=== PATIENT | male | born 1985 | race Caucasian/White ===

== ENCOUNTER 2018-01-29 12:38 | Emergency (ER) | payer SELFPAY ==
[~2018-01-29] VITALS: Ht 188 cm; Wt 116.6 kg
[~2018-01-29 12:38] MED LIST: CRS350T PO; CYCL10TA9 PO; HYDR-3720 PO; HYDR1TAB PO; IBUP-15 PO; LVF500T PO; MEPE50TA PO; METH4TAB PO; NAPR-243 PO; OXYC1TAB19 PO; SENN1TAB76 PO; TRM50T PO
[2018-01-29] MEDS ORDERED: ASPIRIN 81 MG CHEW (CHILDREN'S ASA) PO ONE (13:00)
--- OUTSIDE RECORDS SUMMARY | 2018-01-29 13:00 | XMS REPORT ---
Author Author SHEILA TOURE Organization [employer] Address Unknown Phone Unavailable Care Team Providers Care Rn Picu Name Role Phone SHEILA TOURE CP Unavailable Allergies, Adverse Reactions, Alerts Substance Reaction Event Type N.K.D.A. Info Not Available Non Drug Allergy Problems Problem Type Condition Code Onset Dates Condition Status Problem Unspecified chlamydial infection, in conditions classified elsewhere and of unspecified site 079.98 Active Assessment Dental examination Z01.20 Active Problem Lumbago 724.2 Active Assessment Dental caries, unspecified K02.9 Active Medications Medication Code System Code Instructions Start Date End Date Status Dosage Amoxicillin [facility] [address]-24 500 MG Orally Three times a day Oct 10, 2015 Oct 17, 2015 1 capsule Kennedy [facility] [address]-29 5-325 MG Orally every 6 hrs Oct 10, 2015 1 tablet as needed Procedures Procedure Coding System Code Date INTRAORL-PERIAPICAL 1 FILM 24594 CPT-4 D0220 Oct 10, 2015 EXTRAC ERUPTED TOOTH/EXPOSED ROOT CPT-4 D7140 Oct 10, 2015 LTD ORAL EVALUATION - PROBLEM FOCUS CPT-4 D0140 Oct 10, 2015 Vital Signs Date/Time: Oct 10, 2015 Blood Pressure Diastolic 81 mmHg Blood Pressure Systolic 132 mmHg Height 75 in Results No Known Results Summary Purpose [employer] Submission
--- OUTSIDE RECORDS SUMMARY | 2018-01-29 13:00 | XMS REPORT | Continuity of Care Document ---
Author Author [facility] Organization [facility] Address Unknown Phone Unavailable Allergies There is no data. Medications There is no data. Problems Date Dx Coded Attending Type Code Diagnosis Diagnosed By 05/26/2012 SURESH ROSS APRN 724.2 BACK PAIN, LOWER 11/02/2013 SURESH ROSS APRN 079.98 CHLAMYDIA Procedures Code [place] [address] GC/CHLAM URINE (STATE) 11/02/2013 Results There is no data. Encounters ACCT No. Visit Date/Time Discharge Status Pt. Type Provider Facility Loc./Unit Complaint [id number] 08/21/2013 01:55:00 08/21/2013 03:22:00 DIS Emergency [id number] 11/02/2013 16:26:00 11/02/2013 23:59:59 CLS Outpatient SURESH ROSS APRN
--- OUTSIDE RECORDS SUMMARY | 2018-01-29 13:00 | XMS REPORT ---
Author Author JONATHAN PACHECO [facility] Address Unknown Care Team Providers Care Blow Molder Name Role Phone JONATHAN PACEHCO Unavailable PROBLEMS Type Condition ICD9-CM Code LIU45-QD Code Onset Dates Condition Status SNOMED Code Problem Encounter to establish care with new doctor Z71.89 Active 756716134 Problem Pure hypercholesterolemia E78.0 Active 298957421 Problem Nausea R11.0 Active 455790435 Problem Spinal stenosis of lumbar region M48.06 Active 65660200 Problem Chronic intractable headache, unspecified headache type R51 Active 99875398 Problem Degenerative disc disease, lumbar M51.36 Active 40482665 Problem Migraine without status migrainosus, not intractable, unspecified migraine type G43.909 Active 33060033 ALLERGIES No Known Allergies SOCIAL HISTORY Never Assessed PLAN OF CARE Activity Details Follow Up prn Reason:aleksander/hygiene VITAL SIGNS Height 75 in 2016-12-27 Blood pressure systolic 132 mmHg 2016-12-27 Blood pressure diastolic 79 mmHg 2016-12-27 MEDICATIONS No Known Medications RESULTS No Results PROCEDURES Procedure Date Ordered Result Body Site EXTRAC ERUPTED TOOTH/EXPOSED ROOT Dec 27, 2016 IMMUNIZATIONS No Known Immunizations MEDICAL (GENERAL) HISTORY Type Description Date Medical History Pins and metal plate in Ankle 2002 Medical History spinal stenosis Medical History degenerative disc disease Medical History migraines Surgical History right ankle surgery 2002 Hospitalization History multiple r/t back issues
--- OUTSIDE RECORDS SUMMARY | 2018-01-29 13:00 | XMS REPORT ---
Author Author JONATHAN PACHECO [facility] Address Unknown Care Team Providers Care Slip Bridge Operator Name Role Phone JONATHAN PACHECO Unavailable PROBLEMS Type Condition ICD9-CM Code SRB42-GP Code Onset Dates Condition Status SNOMED Code Problem Encounter to establish care with new doctor Z71.89 Active 436680662 Problem Pure hypercholesterolemia E78.0 Active 689687687 Problem Nausea R11.0 Active 468377074 Problem Spinal stenosis of lumbar region M48.06 Active 58061123 Problem Chronic intractable headache, unspecified headache type R51 Active 49330203 Problem Degenerative disc disease, lumbar M51.36 Active 83194076 Problem Migraine without status migrainosus, not intractable, unspecified migraine type G43.909 Active 60341661 ALLERGIES Substance Reaction Event Type Date Status N.K.D.A. Unknown Non Drug Allergy Nov, Unknown SOCIAL HISTORY No smoking Hx information available PLAN OF CARE Activity Details Follow Up 1 Week Reason:TE #14 VITAL SIGNS Height 75 in 2016-12-13 Blood pressure systolic 125 mmHg 2016-12-13 Blood pressure diastolic 78 mmHg 2016-12-13 MEDICATIONS Medication Instructions Dosage Frequency Start Date End Date Duration Status [place] 5-325 MG Orally every 6 hrs 1 tablet as needed 6h 4 days Active Amoxicillin 500 MG Orally every 8 hrs 1 tablet 8h 7 days Active RESULTS No Results PROCEDURES Procedure Date Ordered Related Diagnosis Body Site LTD ORAL EVALUATION - PROBLEM FOCUS Dec 13, 2016 INTRAORL-PERIAPICAL 1 FILM 36067 Dec 13, 2016 IMMUNIZATIONS No Known Immunizations
[2018-01-29 13:07] LABS: BASOPHILS # (AUTO) 0.1 10^3/uL (0.0-0.1); BASOPHILS % (AUTO) 1 % (0-10); EOSINOPHILS # (AUTO) 0.1 10^3/uL (0.0-0.3); EOSINOPHILS % (AUTO) 2 % (0-10); HEMATOCRIT 44 % (40-54); HEMOGLOBIN 15.4 G/DL (13.3-17.7); LYMPHOCYTES # (AUTO) 2.1 X 10^3 (1.0-4.0); LYMPHOCYTES % (AUTO) 28 % (12-44); MEAN CORPUSCULAR HEMOGLOBIN 31 PG (25-34); MEAN CORPUSCULAR HGB CONC 35 G/DL (32-36); MEAN CORPUSCULAR VOLUME 88 FL (80-99); MEAN PLATELET VOLUME 10.2 FL (7.4-10.4); MONOCYTES # (AUTO) 0.8 X 10^3 (0.0-1.0); MONOCYTES % (AUTO) 10 % (0-12); NEUTROPHILS # (AUTO) 4.5 X 10^3 (1.8-7.8); NEUTROPHILS % (AUTO) 59 % (42-75); PLATELET COUNT 233 10^3/uL (130-400); RED BLOOD COUNT 5.02 10^6/uL (4.35-5.85); RED CELL DISTRIBUTION WIDTH 11.9 % (10.0-14.5); WHITE BLOOD COUNT 7.6 10^3/uL (4.3-11.0)
[2018-01-29 13:21] LABS: PROTHROMBIN TIME PATIENT 13.2 SEC (12.2-14.7)
[2018-01-29 13:27] LABS: ALANINE AMINOTRANSFERASE 70 U/L (0-55); ALKALINE PHOSPHATASE 60 U/L (40-136); BILIRUBIN,TOTAL 0.6 MG/DL (0.1-1.0); BUN/CREATININE RATIO 18; CARBON DIOXIDE 25 MMOL/L (21-32); CHLORIDE 104 MMOL/L (98-107); CREATININE SERUM 0.88 MG/DL (0.60-1.30); GFR ESTIMATED > 60; GLUCOSE 112 MG/DL (70-105); MAGNESIUM 2.3 MG/DL (1.8-2.4); POTASSIUM 3.5 MMOL/L (3.6-5.0); SODIUM 139 MMOL/L (135-145); TOTAL PROTEIN 8.4 GM/DL (6.4-8.2)
[2018-01-29 13:37] LABS: MYOGLOBIN SERUM 37.2 NG/ML (10.0-92.0)
--- NOTE | 2018-01-29 13:55 | Diagnostic Imaging Report ---
EXAMINATION: Portable erect AP chest at 1:09 PM. INDICATION: Epigastric chest pain. COMPARISON: There are no prior studies available for comparison. FINDINGS: The heart size is within normal limits. The lungs are clear. There is no evidence for pneumonia or for a pleural effusion. There is no sign of a pneumothorax. The mediastinum is not widened. The osseous structures are intact. IMPRESSION: There is no evidence for an acute cardiopulmonary abnormality. Dictated by: Dictated on workstation # [id number]
[2018-01-29] MEDS ORDERED: ANTACID SUSP 30 ML UDC (MYLANTA) PO ONE (14:00)
[2018-01-29] MEDS ORDERED: LIDOCAINE 2% VISCOUS 15 ML UDC PO ONE (14:00)
[2018-01-29] MEDS ORDERED: SUCR1TAB36 PO (14:04)
[2018-01-29] MEDS ORDERED: PANT40SU PO (14:04)
--- NOTE | 2018-01-29 14:04 | ED Cardiac General ---
History of Present Illness General Chief Complaint: Chest Pain Stated Complaint: CHEST DISCOMFORT,SOB,SORE THROAT Nursing Triage Note: AMBULATORY TO ER WITH REPORTS OF EPIGASTRIC CHEST PAIN S/P FOOD OR DRINK CONSUMPTION. DENIES ANY SHORTNESS OF BREATH OR ANY OTHER CONCERNS. PATIENT WAS REPORTEDLY SEEN AT [facility] FOR SAME ISSUE EARLIER THIS WEEK WITHOUT ANSWERS. Source: patient Exam Limitations: no limitations History of Present Illness Date Seen by Provider: Jan 29, 2018 Time Seen by Provider: 14:01 Initial Comments To ER with left-sided epigastric pain as well as some pain in his chest and shortness of breath. Pain isn't present for one week. Pain is worsened by eating. He denies cough, pain is not worsened by deep breathing. He does drink alcohol 3-4 times a week. Severity: moderate NTG SL SUPERVISOR BEAM DEPARTMENT: No ASA po SUPERVISOR BEAM DEPARTMENT: No Allergies and Home Medications Allergies Coded Allergies: No Known Drug Allergies (Unverified , 01/17/10) Home Medications Cyclobenzaprine Hcl 10 Mg Tablet, 1 EACH PO Q8HR PRN FOR MUSCLE SPASMS Prescribed by: LUCIO CARDOSO on 08/21/13 024 Methylprednisolone 4 Mg/Dose-Pack Tab.ds.pk, 0 PO UD Prescribed by: LUCIO CARDOSO on 08/21/13 024 Pantoprazole Sodium 40 Mg Granpkt.dr, 40 MG PO DAILY Prescribed by: EDWARD PHILLIPS on 01/29/181403 Sucralfate 1 Gm Tablet, 1 GM PO ACHS Prescribed by: EDWARD PHILLIPS on 01/29/18 140 Patient Home Medication List Home Medication List Reviewed: Yes Review of Systems Constitutional: see HPI EENTM: No Symptoms Reported Respiratory: No Symptoms Reported Cardiovascular: No Symptoms Reported Gastrointestinal: See HPI, Abdominal Pain Genitourinary: No Symptoms Reported Musculoskeletal: no symptoms reported Skin: no symptoms reported Psychiatric/Neurological: No Symptoms Reported Past Sglgpxy-Shvpdw-Jigffj Hx Patient Social History Alcohol Use: Regular Use Alcohol Beverage of Choice: Beer Recreational Drug Use: Yes (OCC POT ON WEEKENDS) Smoking Status: Current Everyday Smoker Type Used: Cigarettes 2nd Hand Smoke Exposure: Yes Recent Foreign Travel: No Contact w/Someone Who Travel: No Recent Infectious Disease Expo: No Recent Hopitalizations: No Physical Abuse: No Sexual Abuse: No Mistreated: No Fear: No Immunizations Up To Date Tetanus Booster (TDap): More than 5yrs PED Vaccines UTD: Yes Seasonal Allergies Seasonal Allergies: Yes Surgeries History of Surgeries: Yes Surgeries: Orthopedic Respiratory History of Respiratory Disorde: No Cardiovascular History of Cardiac Disorders: Yes Cardiac Disorders: High Cholesterol, Hypertension Neurological History of Neurological Disord: No Gastrointestinal History of Gastrointestinal Di: No Musculoskeletal History of Musculoskeletal Dis: Yes Musculoskeletal Disorders: Degenerate Disk Disease, Chronic Back Pain Endocrine History of Endocrine Disorders: No Cancer History of Cancer: No Psychosocial History of Psychiatric Problem: No Suicide Risk Score: 0 Integumentary History of Skin or Integumenta: No Blood Transfusions History of Blood Disorders: No Adverse Reaction to a Blood Tr: No Physical Exam Vital Signs Vital Signs - First Documented Capillary Refill : Less Than 3 Seconds General Appearance: No Apparent Distress, WD/WN HEENT: PERRL/EOMI, TMs Normal Neck: Full Range of Motion, Normal Inspection Respiratory: No Accessory Muscle Use, No Respiratory Distress Gastrointestinal: Normal Bowel Sounds, Soft, Other (there is some epigastric tenderness to palpation) Extremity: Normal Capillary Refill, Normal Inspection Neurologic/Psychiatric: Alert, Oriented x3 Skin: Normal Color, Warm/Dry Progress/Results/Core Measures Results/Orders Lab Results Laboratory Tests Test 01/29/18 12:50 01/29/18 13:54 Range/Units White Blood Count 7.6 4.3-11.0 10^3/uL Red Blood Count 5.02 4.35-5.85 10^6/uL Hemoglobin 15.4 13.3-17.7 G/DL Hematocrit 44 40-54 % Mean Corpuscular Volume 88 80-99 FL Mean Corpuscular Hemoglobin 31 25-34 PG Mean Corpuscular Hemoglobin Concent 35 32-36 G/DL Red Cell Distribution Width 11.9 10.0-14.5 % Platelet Count 233 130-400 10^3/uL Mean Platelet Volume 10.2 7.4-10.4 FL Neutrophils (%) (Auto) 59 42-75 % Lymphocytes (%) (Auto) 28 12-44 % Monocytes (%) (Auto) 10 0-12 % Eosinophils (%) (Auto) 2 0-10 % Basophils (%) (Auto) 1 0-10 % Neutrophils # (Auto) 4.5 1.8-7.8 X 10^3 Lymphocytes # (Auto) 2.1 1.0-4.0 X 10^3 Monocytes # (Auto) 0.8 0.0-1.0 X 10^3 Eosinophils # (Auto) 0.1 0.0-0.3 10^3/uL Basophils # (Auto) 0.1 0.0-0.1 10^3/uL Prothrombin Time 13.2 12.2-14.7 SEC INR Comment 1.0 0.8-1.4 Activated Partial Thromboplast Time 31 24-35 SEC D-Dimer 0.38 0.00-0.49 UG/ML Sodium Level 139 135-145 MMOL/L Potassium Level 3.5 L 3.6-5.0 MMOL/L Chloride Level 104 98-107 MMOL/L Carbon Dioxide Level 25 21-32 MMOL/L Anion Gap 10 5-14 MMOL/L Blood Urea Nitrogen 16 7-18 MG/DL Creatinine 0.88 0.60-1.30 MG/DL Estimat Glomerular Filtration Rate > 60 BUN/Creatinine Ratio 18 Glucose Level 112 H 70-105 MG/DL Calcium Level 10.0 8.5-10.1 MG/DL Magnesium Level 2.3 1.8-2.4 MG/DL Total Bilirubin 0.6 0.1-1.0 MG/DL Aspartate Amino Transf (AST/SGOT) 33 5-34 U/L Alanine Aminotransferase (ALT/SGPT) 70 H 0-55 U/L Alkaline Phosphatase 60 40-136 U/L Myoglobin 37.2 10.0-92.0 NG/ML Troponin I < 0.30 <0.30 NG/ML B-Type Natriuretic Peptide < 10.0 <100.0 PG/ML Total Protein 8.4 H 6.4-8.2 GM/DL Albumin 5.0 H 3.2-4.5 GM/DL Lipase 16 8-78 U/L Urine Opiates Screen NEGATIVE NEGATIVE Urine Oxycodone Screen NEGATIVE NEGATIVE Urine Methadone Screen NEGATIVE NEGATIVE Urine Propoxyphene Screen NEGATIVE NEGATIVE Urine Barbiturates Screen NEGATIVE NEGATIVE Ur Tricyclic Antidepressants Screen NEGATIVE NEGATIVE Urine Phencyclidine Screen NEGATIVE NEGATIVE Urine Amphetamines Screen NEGATIVE NEGATIVE Urine Methamphetamines Screen NEGATIVE NEGATIVE Urine Benzodiazepines Screen NEGATIVE NEGATIVE Urine Cocaine Screen NEGATIVE NEGATIVE Urine Cannabinoids Screen NEGATIVE NEGATIVE My Orders Orders - EDWARD PHILLIPS VICE PRESIDENT [employer]ATIONS Cbc With Automated Diff (01/29/18 12:49) Magnesium (01/29/18 12:49) Chest 1 View, Ap/Pa Only (01/29/18 12:49) Ekg Tracing (01/29/18 12:49) Cardiac Profile 1 (01/29/18 12:49) Comprehensive Metabolic Panel (01/29/18 12:49) Myoglobin Serum (01/29/18 12:49) Protime With Inr (01/29/18 12:49) Partial Thromboplastin Time (01/29/18 12:49) O2 (01/29/18 12:49) Monitor-Rhythm Ecg Trace Only (01/29/18 12:49) Aspirin Chewable Tablet (Baby Aspirin Ch (01/29/18 13:00) Saline Lock/Iv-Start (01/29/18 12:49) BNP (01/29/18 12:49) Fibrin Degradation Products (01/29/18 12:49) Drug Screen Stat (Urine) (01/29/18 12:53) Antacid Suspension (Mylanta Suspension (01/29/18 14:00) Lidocaine 2% Viscous 15 Ml (Xylocaine Vi (01/29/18 14:00) Lipase (01/29/18 14:00) Medications Given in ED Vital Signs/I&O Vital Sign - Last 12Hours 01/29/18 01/29/18 01/29/18 01/29/18 12:48 12:48 12:54 13:06 Temp 98.0 98.0 Pulse 107 Resp 18 B/P (MAP) 151/93 (112) Pulse Ox 97 97 O2 Delivery Room Air Room Air Room Air 01/29/18 15:14 Temp 98.0 Pulse 87 Resp 18 B/P (MAP) 139/86 (112) Pulse Ox 97 O2 Delivery Room Air Blood Pressure Mean: 112 Departure Impression Impression: Primary Impression: Gastritis Disposition: 01 HOME, SELF-CARE Condition: Stable Departure-Patient Inst. Decision time for Depature: 14:03 Referrals: NO,LOCAL PHYSICIAN (PCP/Family) Primary Care Physician Patient Instructions: Gastritis Add. Discharge Instructions: 1. Return to ER for any concerns 2. Medication as directed 3. All discharge instructions reviewed with patient and/or family. Voiced understanding. Scripts Pantoprazole Sodium (Protonix) [address] 40 MG PO DAILY, #30 TAB Prov: EDWARD PHILLPIS APRN 01/29/18 Sucralfate (Carafate) 1 Gm Tablet 1 GM PO ACHS, #40 TAB Prov: EDWARD PHILLIPS APRN 01/29/18 EDWARD PHILLIPS APRN Jan 29, 2018 14:04
[2018-01-29 14:13] LABS: AMPHETAMINE SCREEN, URINE NEGATIVE (NEGATIVE); BARBITURATE SCREEN URINE NEGATIVE (NEGATIVE); BENZODIAZEPINES SCREEN URINE NEGATIVE (NEGATIVE); CANNABINOID SCREEN, URINE NEGATIVE (NEGATIVE); COCAINE SCREEN URINE NEGATIVE (NEGATIVE); METHADONE STAT NEGATIVE (NEGATIVE); METHAMPHETAMINE SCREEN URINE S NEGATIVE (NEGATIVE); OPIATE SCREEN URINE NEGATIVE (NEGATIVE); OXYCODONE STAT NEGATIVE (NEGATIVE); PROPOXYPHENE STAT NEGATIVE (NEGATIVE); TRICYCLIC ANTIDEPRESSANTS SCRE NEGATIVE (NEGATIVE)
[2018-01-29 15:14] VITALS: BP 139/86
== END 2018-01-29 15:14 | disposition home or self-care (01) ==
LOC: EDUNIT# 12:38 → ER 12:42
DX: K29.70 Gastritis, unspecified, without bleeding (principal); E78.00 Pure hypercholesterolemia, unspecified; I10 Essential (primary) hypertension; F17.210 Nicotine dependence, cigarettes, uncomplicated
CPT/HCPCS: 36415; 71045; 80053; 80306; 83690; 83735; 83874; 83880; 84484; 85025; 85379; 85610; 85730; 93005; 93041

== ENCOUNTER 2018-04-27 23:00 | Emergency (ER) | payer SELFPAY ==
[~2018-04-27] VITALS: Ht 190.5 cm; Wt 99.8 kg
[~2018-04-27 23:00] MED LIST changes: +PANT40SU PO; +SUCR1TAB36 PO
--- NOTE | 2018-04-27 23:38 | ED Upper Extremity ---
General Chief Complaint: Laceration Stated Complaint: R ARM LACERATION Nursing Triage Note: ETOH on board, cut rt forarm with glass Nursing Sepsis Screen: No Definite Risk Source: patient, family (father) Exam Limitations: no limitations History of Present Illness Date Seen by Provider: Apr 27, 2018 Time Seen by Provider: 23:29 Initial Comments The patient presents to ER by private conveyance because he was drinking some alcohol tonight and closed the door on the trailer he is staying in and the glass came down and cut his right forearm on the anterior/palmar side. He is not having any pain. He does not own last tetanus shot. He was not trying to hurt himself and has no suicidal ideation. He does not have any significant medical history. Allergies and Home Medications Allergies Coded Allergies: No Known Drug Allergies (Unverified , 01/17/10) Home Medications Cyclobenzaprine Hcl 10 Mg Tablet, 1 EACH PO Q8HR PRN FOR MUSCLE SPASMS Prescribed by: LUCIO CARDOSO on 08/21/13239 Methylprednisolone 4 Mg/Dose-Pack Tab.ds.pk, 0 PO UD Prescribed by: LUCIO CARDOSO on 08/21/13239 Pantoprazole Sodium 40 Mg Granpkt.dr, 40 MG PO DAILY Prescribed by: EDWARD PHILLIPS on 01/29/181403 Sucralfate 1 Gm Tablet, 1 GM PO ACHS Prescribed by: EDWARD PHILLIPS on 01/29/181403 Patient Home Medication List Home Medication List Reviewed: Yes Constitutional: No chills, No diaphoresis EENTM: No ear discharge, No ear pain Respiratory: No cough, No short of breath Cardiovascular: No edema, No palpitations Gastrointestinal: No abdominal pain, No constipation, No nausea Genitourinary: No discharge, No dysuria Musculoskeletal: No back pain, No joint pain Past Uhwbkgr-Lhqohb-Qpucqh Hx Patient Social History Alcohol Use: Regular Use Alcohol Beverage of Choice: Beer Recreational Drug Use: No Smoking Status: Current Everyday Smoker Type Used: Cigarettes 2nd Hand Smoke Exposure: Yes Recent Foreign Travel: No Contact w/Someone Who Travel: No Recent Infectious Disease Expo: No Recent Hopitalizations: No Immunizations Up To Date Tetanus Booster (TDap): More than 5yrs PED Vaccines UTD: Yes Seasonal Allergies Seasonal Allergies: Yes Past Medical History Surgeries: Yes Orthopedic Respiratory: No Cardiac: Yes High Cholesterol, Hypertension Neurological: No Gastrointestinal: No Musculoskeletal: Yes Degenerate Disk Disease, Chronic Back Pain Endocrine: No Cancer: No Psychosocial: No Integumentary: No Blood Disorders: No Adverse Reaction/Blood Tranf: No Physical Exam Vital Signs Vital Signs - First Documented 04/27/18 23:23 Temp 98.0 Pulse 77 Resp 20 B/P (MAP) 122/77 (92) Pulse Ox 93 Capillary Refill : Less Than 3 Seconds General Appearance: WD/WN, no apparent distress HEENT: PERRL/EOMI, pharynx normal Neck: non-tender, normal inspection Cardiovascular: normal peripheral pulses, regular rate, rhythm, no edema Respiratory: chest non-tender, lungs clear, normal breath sounds Elbow/Forearm: non-tender, normal ROM, Right, soft tissue tenderness (3-4 cm linear laceration that is into the subcutaneous fat on the anterior right forearm with no palpable foreign body.) Wrist: Yes normal inspection, Yes non-tender, Yes no evidence of injury, Yes normal ROM Hand: normal inspection, non-tender, no evidence of injury, normal ROM, Right Neurologic/Tendon: normal sensation, normal motor functions, normal tendon functions, responds to pain, no evidence tendon injury Neurologic/Psychiatric: no motor/sensory deficits, alert, normal mood/affect, oriented x 3 Skin: normal color, warm/dry Procedures/Interventions Wound Location: Upper Extremities Other Wound Location Right anterior forearm Wound Length (cm): 4 Wound's Depth, Shape: superficial Wound Explored: clean Irrigated w/ Saline (ccs): 100 Betadine Prep?: Yes (and chlorhexidine soap water) Anesthesia: Lidocaine w/ Epi Volume Anesthetic (ccs): 4 Wound Debrided: minimal Suture: Ethlion Suture Size: 2-0 Number of Sutures: 5 Layer Closure?: 1 Progress Wound was cleaned thoroughly with chlorhexidine soap water and then soaked in iodine. X-rays obtained showing no obvious foreign bodies. The wound was explored and found to be very superficial at the level of just below the dermis. Wound was then infiltrated allow around the edges with 1% lidocaine with epinephrine. When the patient was determined to be numb the wound was then approximated and closed using 5 simple interrupted sutures 2-0 Ethilon. The patient tolerated the procedure well. Progress/Results/Core Measures Results/Orders My Orders Orders - FUENTES WEBSTER Forearm, Right, 2 Views (04/27/18 23:25) Dipht,Pertuss(Acell),Tet Adult (Boostrix (04/27/18 23:45) Medications Given in ED Current Medications Medications Dose Ordered Sig/Rosa Route Start Time Stop Time Status Last Admin Dose Admin Diphtheria/ Tetanus/Acell Pertussis 0.5 ml ONCE ONCE IM 04/27/18 23:45 04/27/18 23:46 DC 04/27/18 23:54 0.5 ML Vital Signs/I&O 04/27/18 23:23 Temp 98.0 Pulse 77 Resp 20 B/P (MAP) 122/77 (92) Pulse Ox 93 Blood Pressure Mean: 92 Diagnostic Imaging Diagonstic Imaging: Xray Plain Films/CT/US/NM/MRI: forearm (r) Comments No acute osseous abnormality or soft tissue foreign body noted. Reviewed: Reviewed by Me Departure Impression Primary Impression: Laceration of forearm without complication Qualified Codes: S51.811A - Laceration without foreign body of right forearm, initial encounter Disposition: HOME, SELF-CARE Condition: Improved Departure-Patient Inst. Decision time for Depature: 23:59 Referrals: NO,LOCAL PHYSICIAN (PCP/Family) Primary Care Physician Patient Instructions: Laceration Repair With Stitches (DC) Add. Discharge Instructions: You were given a tetanus shot. You should return to the ER or Dr. of your choice in 10-14 days which would be next week Friday to Friday to have the stitches removed. If you start having redness, swelling or pain or loss of mobility of your hand you should see a doctor sooner as you may have an infection. You do not need antibiotics for your wound as it has been cleaned with an antibacterial soap, Betadine and sealed with stitches. You can apply a thin layer of Vaseline after washing with regular soap and water only. You can use a Band-Aid or dressing if you're going to be in a kailey environment. Pain can be controlled with Tylenol 1000 mg every 8 hours, ibuprofen 800 mg every 8 hours and ice. All discharge instructions reviewed with patient and/or family. Voiced understanding. FUENTES WEBSTER Apr 27, 2018 23:38
[2018-04-27] MEDS ORDERED: TETANUS,DIPTH,PERTUSS P/F (BOOSTRIX) 0.5 ML VIAL IM ONE (23:45)
[2018-04-28 00:15] VITALS: BP 133/85
--- NOTE | 2018-04-28 07:05 | Diagnostic Imaging Report ---
Indication: Forearm injury, pain. Comparison: None. Findings: Two views of the right forearm demonstrate no fracture or dislocation. Articular surfaces are normal. There is no foreign body. Impression: Negative right forearm. Dictated by: Dictated on workstation # [id number]
== END 2018-04-28 00:06 | disposition home or self-care (01) ==
LOC: EDUNIT# 23:00 → ER 23:01
DX: S51.811A Laceration without foreign body of right forearm, initial encounter (principal); E78.00 Pure hypercholesterolemia, unspecified; I10 Essential (primary) hypertension; F17.210 Nicotine dependence, cigarettes, uncomplicated; Z23 Encounter for immunization; Z79.52 Long term (current) use of systemic steroids; W25.XXXA Contact with sharp glass, initial encounter
CPT/HCPCS: 73090; 90471; 90715

== ENCOUNTER 2018-11-10 09:58 | Day surgery (SDC) | payer SELFPAY ==
[~2018-11-10] VITALS: Ht 190.5 cm; Wt 113.4 kg
--- OUTSIDE RECORDS SUMMARY | 2018-11-10 10:03 | XMS REPORT | Continuity of Care Document ---
Author Author [facility] Organization [facility] Address Unknown Phone Unavailable Care Team Providers Care Pharm Tech Name Role Phone DON AGUIRRE MD PP Insurance Providers Payer Name Policy Number Subscriber Name Relationship Self Pay David Merida 01 Self / Same As Patient Advance Directives Directive Response Recorded Date Advance Directives N 08/21/13 2:02am Health Care Power of Anesthesiology Crna N 08/21/13 2:02am Problems No Known Problems or Medical conditions. Family History History Response Recorded Date/Time Hx Family Cancer Y GRANDPA AND DAD--PROSTATE 02/14/12 12:19pm Hx Family Cardiac Disorders Y 02/14/12 12 :19pm Hx Family Stroke Y 02/14/12 12:19pm Hx Family Myocardial Infarction Y 12:19pm Social History History Response Recorded Date/Time Alcohol Use Regular Use 08/21/13 2:40am Recreational Drug Use Y THC 08/21/13 2: 40am Hospitalization with Isolation Denies 2:02am Allergies, Adverse Reactions, Alerts Allergen Type Severity Reaction Last Updated No Known Drug Allergies 01/17/10 Medications Medication Dose Units Route Sig Qty Days Methylprednisolone (Medrol Dose Pack) 0 PO UD 1 Cyclobenzaprine HCl (Cyclobenzaprine Hcl) 1 Each PO Q8HR PRN 15 Senna (Senokot S) 2 Ea PO BID Naproxen (Naprosyn) 1 Each PO BID 60 Cyclobenzaprine HCl (Cyclobenzaprine Hcl) 1 Each PO Q8HR PRN 60 Oxycodone Hcl/Acetaminophen (Oxycodone-Apap 7.5-500 Mg Tab) 1 Each PO Q4H PRN 60 Response Recorded Date/Time Status not known Unknown Results No Known Relevant Diagnostic Tests, Laboratory Data and/or Discharge Summary. Encounters Encounter Location Date/Time Departed Emergency Room [facility] 1:55am Discharged Inpatient [facility] 10:20am
--- OUTSIDE RECORDS SUMMARY | 2018-11-10 10:03 | XMS REPORT ---
Author Author ANIYA TRAN [facility] Address [address] [place] [address] Care Team Providers Care Pattern Technician Name Role Phone ANIYA TRAN Unavailable PROBLEMS Type Condition ICD9-CM Code GOS85-XF Code Onset Dates Condition Status SNOMED Code Problem Encounter to establish care with new doctor Z71.89 Active 907901173 Problem Pure hypercholesterolemia E78.0 Active 599503943 Problem Nausea R11.0 Active 489261375 Problem Spinal stenosis of lumbar region M48.06 Active 91087356 Problem Chronic intractable headache, unspecified headache type R51 Active 20766157 Problem Degenerative disc disease, lumbar M51.36 Active 11026882 Problem Migraine without status migrainosus, not intractable, unspecified migraine type G43.909 Active 94713822 ALLERGIES No Information ENCOUNTERS Encounter Location Date Diagnosis [facility] [address] [phone] Jan, [facility] [address] [id number] Dec, Dental caries K02.9 [facility] [id number] [place] [phone] Nov, Dental examination Z01.20 [facility] [address] [address] 28 Apr, 2016 Chronic intractable headache, unspecified headache type R51 ; Migraine without status migrainosus, not intractable, unspecified migraine type G43.909 ; Degenerative disc disease, lumbar M51.36 ; Spinal stenosis of lumbar region M48.06 and Pure hypercholesterolemia E78.0 [facility] [address] [address] 14 Apr, 2016 [facility] [address] [id number] Apr, Degenerative disc disease, lumbar M51.36 ; Spinal stenosis of lumbar region M48.06 ; Chronic intractable headache, unspecified headache type R51 ; Migraine without status migrainosus, not intractable, unspecified migraine type G43.909 ; Nausea R11.0 and Encounter to establish care with new doctor Z71.[address] [id number] [id number] Sep, Dental examination Z01.20 and Dental caries, unspecified K02.9 [facility] [address] [address] Feb, [facility] [id number] [place] [phone] Feb, [facility] [id number] [address] Oct, [facility] [id number] [place] [phone] Oct, [facility] [id number] [place] [phone] Oct, [facility] [id number] [place] [phone] Oct, [facility] [id number] [place] [phone] May, [facility] [id number] [place] [phone] May, [facility] [id number] [address] May, [facility] [id number] [place] [phone] May, IMMUNIZATIONS No Known Immunizations SOCIAL HISTORY Never Assessed REASON FOR VISIT epigastric pain that started 8 days ago. went to the ER last friday...had ctscan and labs. here for a follow up and wants a scope. pt educated that we will get him an ghada with pcp...pt verbalized understanding. PLAN OF CARE VITAL SIGNS Height 75 in 2018-01-29 Weight 253.0 lbs 2018-01-29 Temperature 98.1 degrees Fahrenheit 2018-01-29 Heart Rate 84 bpm 2018-01-29 Respiratory Rate 20 2018-01-29 BMI 31.62 kg/m2 2018-01-29 Blood pressure systolic 134 mmHg 2018-01-29 Blood pressure diastolic 80 mmHg 2018-01-29 MEDICATIONS Medication Instructions Dosage Frequency Start Date End Date Duration Status [place] 5-325 MG Orally every 6 hrs 1 tablet as needed 6h Sep, Not-Taking Amitriptyline HCl 25 MG Orally one hour before bed 1 tablet Apr, 30 day(s) Not-Taking Zofran 4 MG Orally every 6 hours prn 1 tablet Apr, 30 day(s) Not-Taking [place] 5-325 MG Orally every 6 hrs 1 tablet as needed 6h 4 days Not- Taking Imitrex 100 MG Orally take one and then if headache not gone repeat in 2 hours 1 tablet as needed Apr, Not-Taking Lopid 600 MG Orally Twice a day 1 tablet 12h 15 Apr, 2016 Not-Taking Naprosyn 500 MG Orally every 12 hrs 1 tablet as needed 12h 08 Apr, 2016 Not-Taking Amoxicillin 500 MG Orally every 8 hrs 1 tablet 8h 7 days Not-Taking RESULTS No Results PROCEDURES No Known procedures INSTRUCTIONS MEDICATIONS ADMINISTERED No Known Medications MEDICAL (GENERAL) HISTORY Type Description Date Medical History Pins and metal plate in Ankle 2002 Medical History spinal stenosis Medical History degenerative disc disease Medical History migraines Surgical History right ankle surgery 2002 Hospitalization History multiple r/t back issues
[2018-11-10] MEDS ORDERED: ONDANSETRON 4 MG/2 ML (SDV) Z0FRAN IVP ONE ×2 (12:00→18:30)
[2018-11-10] MEDS ORDERED: KETOROLAC 30 MG/ML VIAL IVP ONE (12:00)
[2018-11-10] MEDS ORDERED: NS IV 1000 ML 1,000 ML IV SCH (12:00)
[2018-11-10 12:09] LABS: BASOPHILS % (AUTO) 0 % (0-10); EOSINOPHILS # (AUTO) 0.1 10^3/uL (0.0-0.3); EOSINOPHILS % (AUTO) 0 % (0-10); HEMATOCRIT 47 % (40-54); HEMOGLOBIN 16.2 G/DL (13.3-17.7); LYMPHOCYTES # (AUTO) 1.2 X 10^3 (1.0-4.0); LYMPHOCYTES % (AUTO) 6 % (12-44); MEAN CORPUSCULAR HEMOGLOBIN 30 PG (25-34); MEAN CORPUSCULAR HGB CONC 34 G/DL (32-36); MEAN CORPUSCULAR VOLUME 88 FL (80-99); MEAN PLATELET VOLUME 10.4 FL (7.4-10.4); MONOCYTES # (AUTO) 1.4 X 10^3 (0.0-1.0); MONOCYTES % (AUTO) 7 % (0-12); NEUTROPHILS # (AUTO) 17.7 X 10^3 (1.8-7.8); NEUTROPHILS % (AUTO) 87 % (42-75); PLATELET COUNT 278 10^3/uL (130-400); RED BLOOD COUNT 5.36 10^6/uL (4.35-5.85); RED CELL DISTRIBUTION WIDTH 12.9 % (10.0-14.5); WHITE BLOOD COUNT 20.4 10^3/uL (4.3-11.0)
--- NOTE | 2018-11-10 12:14 | ED GI ---
General Chief Complaint: Abdominal/GI Problems Stated Complaint: NAUSEA;ABD PAIN Nursing Triage Note: Pt reports abd pain and nausea starting at 0600 this morning Sepsis Screen: No Definite Risk Source of Information: Patient Exam Limitations: No Limitations History of Present Illness Date Seen by Provider: Nov 10, 2018 Time Seen by Provider: 12:13 Initial Comments To ER with reports of abdominal pain, nausea. No vomiting. No diarrhea. No fevers or chills. This pain began left periumbilical region this morning about 6 AM. Pain has since moved to the right side. Never had this before. He is also having spasms and twitching in his calves and thighs. Timing/Duration: 4-6 Hours Severity/Quality: Moderate Location: Periumbilical Radiation: No Radiation Activities at Onset: None Associated Symptoms: Nausea/Vomiting Allergies and Home Medications Allergies Coded Allergies: morphine (Unverified Allergy, Unknown, 11/10/18) nausea Home Medications No Active Prescriptions or Reported Meds Patient Home Medication List Home Medication List Reviewed: Yes Review of Systems Review of Systems Constitutional: see HPI; No chills, No fever EENTM: No Symptoms Reported Respiratory: No Symptoms Reported Cardiovascular: No Symptoms Reported Gastrointestinal: See HPI, Abdominal Pain; Denies Constipated, Denies Diarrhea ; Nausea; Denies Vomiting Genitourinary: No Symptoms Reported Musculoskeletal: no symptoms reported Skin: no symptoms reported Psychiatric/Neurological: No Symptoms Reported Endocrine: No Symptoms Reported Past Frjpvtx-Gpqcsq-Kgmsxp Hx Patient Social History Alcohol Use: Denies Use Alcohol Beverage of Choice: Beer Recreational Drug Use: No Type Used: Cigarettes 2nd Hand Smoke Exposure: Yes Recent Foreign Travel: No Contact w/Someone Who Travel: No Recent Infectious Disease Expo: No Recent Hopitalizations: No Immunizations Up To Date Tetanus Booster (TDap): More than 5yrs PED Vaccines UTD: Yes Seasonal Allergies Seasonal Allergies: Yes Past Medical History Surgeries: Yes Orthopedic Respiratory: No Cardiac: Yes (BORDERLINE) High Cholesterol, Hypertension Neurological: No Gastrointestinal: No Musculoskeletal: Yes (SPINAL STENOSIS) Degenerate Disk Disease, Chronic Back Pain Endocrine: No Cancer: No Psychosocial: No Integumentary: No Blood Disorders: No Adverse Reaction/Blood Tranf: No Physical Exam Vital Signs Vital Signs - First Documented 11/10/18 10:37 Temp 98.1 Pulse 86 Resp 18 B/P (MAP) 149/79 (102) Pulse Ox 98 O2 Delivery Room Air Capillary Refill : Less Than 3 Seconds Height/Weight/BMI Height: 6'3.00" Weight: 250lbs. oz. 113.915533ag; BMI Method:Stated General Appearance: WD/WN, no apparent distress HEENT: PERRL/EOMI, normal ENT inspection Neck: non-tender, full range of motion Respiratory: no respiratory distress, no accessory muscle use Gastrointestinal: normal bowel sounds, soft, rebound, tenderness Extremities: normal range of motion, non-tender Neurologic/Psychiatric: alert, normal mood/affect, oriented x 3 Skin: normal color, warm/dry Procedures/Interventions Suture Size: 2-0 Progress/Results/Core Measures Results/Orders Lab Results Laboratory Tests Test 11/10/18 11:46 Range/Units White Blood Count 20.4 H 4.3-11.0 10^3/uL Red Blood Count 5.36 4.35-5.85 10^6/uL Hemoglobin 16.2 13.3-17.7 G/DL Hematocrit 47 40-54 % Mean Corpuscular Volume 88 80-99 FL Mean Corpuscular Hemoglobin 30 25-34 PG Mean Corpuscular Hemoglobin Concent 34 32-36 G/DL Red Cell Distribution Width 12.9 10.0-14.5 % Platelet Count 278 130-400 10^3/uL Mean Platelet Volume 10.4 7.4-10.4 FL Neutrophils (%) (Auto) 87 H 42-75 % Lymphocytes (%) (Auto) 6 L 12-44 % Monocytes (%) (Auto) 7 0-12 % Eosinophils (%) (Auto) 0 0-10 % Basophils (%) (Auto) 0 0-10 % Neutrophils # (Auto) 17.7 H 1.8-7.8 X 10^3 Lymphocytes # (Auto) 1.2 1.0-4.0 X 10^3 Monocytes # (Auto) 1.4 H 0.0-1.0 X 10^3 Eosinophils # (Auto) 0.1 0.0-0.3 10^3/uL Basophils # (Auto) 0.0 0.0-0.1 10^3/uL Neutrophils % (Manual) 86 % Lymphocytes % (Manual) 9 % Monocytes % (Manual) 4 % Eosinophils % (Manual) 1 % Basophils % (Manual) 0 % Band Neutrophils 0 % Blood Morphology Comment NORMAL Sodium Level 141 135-145 MMOL/L Potassium Level 4.0 3.6-5.0 MMOL/L Chloride Level 106 98-107 MMOL/L Carbon Dioxide Level 22 21-32 MMOL/L Anion Gap 13 5-14 MMOL/L Blood Urea Nitrogen 16 7-18 MG/DL Creatinine 0.86 0.60-1.30 MG/DL Estimat Glomerular Filtration Rate > 60 BUN/Creatinine Ratio 19 Glucose Level 98 70-105 MG/DL Calcium Level 9.9 8.5-10.1 MG/DL Corrected Calcium 8.5-10.1 MG/DL Total Bilirubin 0.7 0.1-1.0 MG/DL Aspartate Amino Transf (AST/SGOT) 27 5-34 U/L Alanine Aminotransferase (ALT/SGPT) 46 0-55 U/L Alkaline Phosphatase 63 40-136 U/L Total Creatine Kinase 113 30-200 U/L Myoglobin 34.6 10.0-92.0 NG/ML Total Protein 8.9 H 6.4-8.2 GM/DL Albumin 5.4 H 3.2-4.5 GM/DL Lipase 13 8-78 U/L My Orders Orders - EDWARD PHILLIPS APRN Cbc With Automated Diff (11/10/18 11:57) Comprehensive Metabolic Panel (11/10/18 11:57) Ua Culture If Indicated (11/10/18 11:57) Iv Heplock-Insert (Order) (11/10/18 11:57) Lipase (11/10/18 11:57) Ct Abdomen/Pelvis W (11/10/18 11:57) Ketorolac Injection (Toradol Injection) (11/10/18 12:00) Ondansetron Injection (Zofran Injectio (11/10/18 12:00) Ns Iv 1000 Ml (Sodium Chloride 0.9%) (11/10/18 12:00) Manual Differential (11/10/18 11:46) Creatine Kinase (11/10/18 12:19) Myoglobin Serum (11/10/18 12:19) Orphenadrine Injection (Norflex Injectio (11/10/18 12:30) Iohexol Injection (Omnipaque 350 Mg/Ml 1 (11/10/18 12:45) Contrast Received (Contrast Received) (11/10/18 12:45) Ns (Ivpb) (Sodium Chloride 0.9% Ivpb Bag (11/10/18 12:45) Medications Given in ED Current Medications Medications Dose Ordered Sig/Rosa Route Start Time Stop Time Status Last Admin Dose Admin Iohexol 100 ml ONCE ONCE IV 11/10/18 12:45 11/10/18 12:46 DC 11/10/18 12:44 100 ML Ketorolac Tromethamine 30 mg ONCE ONCE IVP 11/10/18 12:00 11/10/18 12:01 DC 11/10/18 12:14 30 MG Ondansetron HCl 8 mg ONCE ONCE IVP 11/10/18 12:00 11/10/18 12:01 DC 11/10/18 12:12 8 MG Orphenadrine Citrate 30 mg ONCE ONCE IV 11/10/18 12:30 11/10/18 12:31 DC 11/10/18 12:22 30 MG Sodium Chloride 100 ml ONCE ONCE IV 11/10/18 12:45 11/10/18 12:46 DC 11/10/18 12:44 80 ML Vital Signs/I&O 11/10/18 10:37 Temp 98.1 Pulse 86 Resp 18 B/P (MAP) 149/79 (102) Pulse Ox 98 O2 Delivery Room Air Blood Pressure Mean: 102 Diagnostic Imaging Diagonstic Imaging: CT Comments NAME: TIMBO MERIDA MED REC#: [id number] PT STATUS: REG ER : 1985 PHYSICIAN: EDWARD PHILLIPS MOLD PULLER ADMIT DATE: 11/10/18/ER Draft Date of Exam:11/10/18 CT ABDOMEN/PELVIS W PROCEDURE: CT abdomen and pelvis with contrast. TECHNIQUE: Multiple contiguous axial images were obtained through the abdomen and pelvis after administration of intravenous contrast. INDICATION: Right lower quadrant pain with nausea of 7 hours duration. FINDINGS: There are findings most consistent with acute appendicitis. The appendiceal matthews are thickened. There is periappendiceal inflammation of the fat and the appendiceal outer wall to outer wall diameter of 11 mm is mildly prominent. No abscess. No free air. No findings suggestive of transmural perforation. No resultant bowel obstruction or ileus. The urinary tracts are unobstructed and unremarkable. The remaining abdominal/pelvic solid and hollow viscera are unremarkable. IMPRESSION: The findings are most consistent with likely early changes of acute appendicitis without resultant obstruction, abscess, or viscus perforation. The results were discussed with the ER physician. Dictated on workstation # [id number] Dict: 11/10/18 1301 Trans: 11/10/18 1309 [id number] Interpreted by: RAQUEL MA Electronically signed by: Departure Communication (Admissions) Time/Spoke to Admitting Phy: 14:[address] Alcantara. He will take patient to the operating room. Impression Primary Impression: Acute appendicitis Qualified Codes: K35.30 - Acute appendicitis with localized peritonitis, without perforation or gangrene Disposition: ADMITTED INPATIENT Condition: Stable Admissions Decision to Admit Reason: Admit from ER (General) Decision to Admit/Date: Nov 10, 2018 Time/Decision to Admit Time: 13:08 Departure-Patient Inst. Referrals: NO,LOCAL PHYSICIAN (PCP/Family) Primary Care Physician Scripts No Active Prescriptions or Reported Meds EDWARD PHILLIPS APRN Nov 10, 2018 12:14
[2018-11-10 12:19] LABS: ALANINE AMINOTRANSFERASE 46 U/L (0-55); ALBUMIN 5.4 GM/DL (3.2-4.5); ALKALINE PHOSPHATASE 63 U/L (40-136); BILIRUBIN,TOTAL 0.7 MG/DL (0.1-1.0); BUN/CREATININE RATIO 19; CALCIUM 9.9 MG/DL (8.5-10.1); CARBON DIOXIDE 22 MMOL/L (21-32); CHLORIDE 106 MMOL/L (98-107); CREATININE SERUM 0.86 MG/DL (0.60-1.30); GFR ESTIMATED > 60; GLUCOSE 98 MG/DL (70-105); LIPASE 13 U/L (8-78); SODIUM 141 MMOL/L (135-145); TOTAL PROTEIN 8.9 GM/DL (6.4-8.2)
[2018-11-10] MEDS ORDERED: ORPHENADRINE 60 MG/2 ML (NORFLEX) AMP IV ONE (12:30)
[2018-11-10 12:40] LABS: BAND NEUTROPHILS 0 %; BASOPHILS % (MANUAL) 0 %; EOSINOPHILS % (MANUAL) 1 %; LYMPHOCYTES % (MANUAL) 9 %; MONOCYTES % (MANUAL) 4 %; NEUTROPHILS % (MANUAL) 86 %
[2018-11-10 12:41] LABS: RBC MORPH NORMAL
[2018-11-10] MEDS ORDERED: IOHEXOL 350 MG/ML 100 ML (OMNIPAQUE 350) VIAL IV ONE (12:45)
[2018-11-10] MEDS ORDERED: RECEIVED CONTRAST (Hold Metformin) IV SCH (12:45)
[2018-11-10] MEDS ORDERED: NS 100 ML (IVPB) BAG IV ONE (12:45)
[2018-11-10 12:48] LABS: MYOGLOBIN SERUM 34.6 NG/ML (10.0-92.0)
--- NOTE | 2018-11-10 13:09 | Diagnostic Imaging Report ---
PROCEDURE: CT abdomen and pelvis with contrast. TECHNIQUE: Multiple contiguous axial images were obtained through the abdomen and pelvis after administration of intravenous contrast. INDICATION: Right lower quadrant pain with nausea of 7 hours duration. FINDINGS: There are findings most consistent with acute appendicitis. The appendiceal matthews are thickened. There is periappendiceal inflammation of the fat and the appendiceal outer wall to outer wall diameter of 11 mm is mildly prominent. No abscess. No free air. No findings suggestive of transmural perforation. No resultant bowel obstruction or ileus. The urinary tracts are unobstructed and unremarkable. The remaining abdominal/pelvic solid and hollow viscera are unremarkable. IMPRESSION: The findings are most consistent with likely early changes of acute appendicitis without resultant obstruction, abscess, or viscus perforation. The results were discussed with the ER physician. Dictated by: Dictated on workstation # [id number]
[2018-11-10] MEDS ORDERED: fentaNYL INJECTION 100 MCG/2 ML AMP IVP ONE (13:30)
[2018-11-10 13:50] LABS: BILIRUBIN,URINE NEGATIVE (NEGATIVE); CLARITY,URINE CLEAR; COLOR,URINE YELLOW; GLUCOSE, URINE (UA) NEGATIVE (NEGATIVE); KETONES,URINE NEGATIVE (NEGATIVE); LEUKOCYTE ESTERASE ,URINE NEGATIVE (NEGATIVE); NITRITE,URINE NEGATIVE (NEGATIVE); PH,URINE 5 (5-9); PROTEIN,URINE 1+ (NEGATIVE); UROBILINOGEN,URINE NORMAL (NORMAL)
[2018-11-10 13:59] LABS: BACTERIA,URINE TRACE /HPF; RBC,URINE RARE /HPF; WBC,URINE RARE /HPF
[2018-11-10 14:08] VITALS: BP 157/83
[2018-11-10] MEDS ORDERED: BUPIVACAINE 0.5% 30 ML (SENSORCAINE) VIAL ONE (14:42)
[2018-11-10] MEDS ORDERED: LIDOCAINE 1% INJ 20 ML 20 ML VIAL ONE (14:42)
[2018-11-10] MEDS ORDERED: ceFAZolin 2 GM IV Premixed 50 ML IV ONE (14:45)
[2018-11-10] MEDS ORDERED: metroNIDAZOLE 500MG/100ML IVPB IV ONE (14:45)
[2018-11-10] MEDS ORDERED: LACTATED RINGERS 1,000 ML IV SCH (14:45)
--- NOTE | 2018-11-10 14:49 | History & Physical-Surgical ---
History of Present Illness History of Present Illness Reason for visit/HPI RLQ abdominal pain. Sonia is a 33 year old male who woke up today with periumbilical pain. Sharp pain that moved to right lower quadrant. Pain moderate to severe. Patient movement makes worse, nothing better. Has nausea no emesis. Denies fever sweats chills shortness of breath or chest pain. Patient with wbc 20k and i reviewed ct consistent with appendicitis. Date of Admission T Date Seen by a Provider: Nov 10, 2018 Time Seen by a Provider: 14:49 I consulted on this patient on 11/10/18 14:44 Attending Physician Lakeisha Alcantara DO Admitting Physician No,Local Physician Consult Allergies and Home Medications Allergies Coded Allergies: morphine (Unverified Allergy, Unknown, 11/10/18) nausea Home Medications No Active Prescriptions or Reported Meds Patient Home Medication List Home Medication List Reviewed: Yes Past Vgdmaid-Rclvdm-Gglorv Hx Patient Social History Alcohol Use: Denies Use Recreational Drug Use: Yes ([employer]) Smoking Status: Current Everyday Smoker Type Used: Cigarettes 2nd Hand Smoke Exposure: Yes Recent Foreign Travel: No Contact w/Someone Who Travel: No Recent Infectious Disease Expo: No Recent Hopitalizations: No Immunizations Up To Date Tetanus Booster (TDap): More than 5yrs PED Vaccines UTD: Yes Seasonal Allergies Seasonal Allergies: Yes Surgeries History of Surgeries: Yes Surgeries: Orthopedic Respiratory History of Respiratory Disorde: No Cardiovascular History of Cardiac Disorders: Yes (BORDERLINE) Cardiac Disorders: High Cholesterol, Hypertension Neurological History of Neurological Disord: No Gastrointestinal History of Gastrointestinal Di: No Musculoskeletal History of Musculoskeletal Dis: Yes (SPINAL STENOSIS) Musculoskeletal Disorders: Degenerate Disk Disease, Chronic Back Pain Endocrine History of Endocrine Disorders: No Cancer History of Cancer: No Psychosocial History of Psychiatric Problem: No Integumentary History of Skin or Integumenta: No Blood Transfusions History of Blood Disorders: No Adverse Reaction to a Blood Tr: No Family Medical History Significant Family History: Diabetes Review of Systems Constitutional: no symptoms reported EENTM: no symptoms reported Respiratory: no symptoms reported Cardiovascular: no symptoms reported Gastrointestinal: see HPI Genitourinary: no symptoms reported Musculoskeletal: no symptoms reported Skin: no symptoms reported Psychiatric/Neurological: No Symptoms Reported Physical Exam Vital Signs Vital Signs - First Documented 11/10/18 10:37 Temp 98.1 Pulse 86 Resp 18 B/P (MAP) 149/79 (102) Pulse Ox 98 O2 Delivery Room Air Capillary Refill : Less Than 3 Seconds Height, Weight, BMI Height: 6'3.00" Weight: 250lbs. oz. 113.010783xv; BMI Method:Stated General Appearance: No Apparent Distress, WD/WN HEENT: PERRL/EOMI, Normal ENT Inspection Neck: Non Tender, Supple Respiratory: Chest Non Tender, No Accessory Muscle Use, No Respiratory Distress Gastrointestinal: Normal Bowel Sounds, Soft, Tenderness (right lower quadrant) Rectal: Deferred Back: Normal Inspection Extremity: Normal Inspection, Non Tender Neurologic/Psychiatric: Alert, Oriented x3, No Motor/Sensory Deficits, soap worker II- XII Norm as Tested Skin: Normal Color, Warm/Dry Lymphatic: No Adenopathy Data Review Labs Laboratory Tests 11/10/18 11:46: White Blood Count 20.4H, Red Blood Count 5.36, Hemoglobin 16.2, Hematocrit 47, Mean Corpuscular Volume 88, Mean Corpuscular Hemoglobin 30, Mean Corpuscular Hemoglobin Concent 34, Red Cell Distribution Width 12.9, Platelet Count 278, Mean Platelet Volume 10.4, Neutrophils (%) (Auto) 87H, Lymphocytes (%) (Auto) 6L , Monocytes (%) (Auto) 7, Eosinophils (%) (Auto) 0, Basophils (%) (Auto) 0, Neutrophils # (Auto) 17.7H, Lymphocytes # (Auto) 1.2, Monocytes # (Auto) 1.4H, Eosinophils # (Auto) 0.1, Basophils # (Auto) 0.0, Neutrophils % (Manual) 86, Lymphocytes % (Manual) 9, Monocytes % (Manual) 4, Eosinophils % (Manual) 1, Basophils % (Manual) 0, Band Neutrophils 0, Blood Morphology Comment NORMAL, Sodium Level 141, Potassium Level 4.0, Chloride Level 106, Carbon Dioxide Level 22, Anion Gap 13, Blood Urea Nitrogen 16, Creatinine 0.86, Estimat Glomerular Filtration Rate > 60, BUN/Creatinine Ratio 19, Glucose Level 98, Calcium Level 9.9, Corrected Calcium , Total Bilirubin 0.7, Aspartate Amino Transf (AST/SGOT) 27, Alanine Aminotransferase (ALT/SGPT) 46, Alkaline Phosphatase 63, Total Creatine Kinase 113, Myoglobin 34.6, Total Protein 8.9H, Albumin 5.4H, Lipase 13 11/10/18 13:45: Urine Color YELLOW, Urine Clarity CLEAR, Urine pH 5, Urine Specific [place] 1.020, Urine Protein 1+H, Urine Glucose (UA) NEGATIVE, Urine Ketones NEGATIVE, Urine Nitrite NEGATIVE, Urine Bilirubin NEGATIVE, Urine Urobilinogen NORMAL, Urine Leukocyte Esterase NEGATIVE, Urine RBC (Auto) 1+H, Urine RBC RARE, Urine WBC RARE, Urine Crystals NONE, Urine Bacteria TRACE, Urine Casts NONE, Urine Mucus SMALLH, Urine Culture Indicated NO Assessment/Plan Assessment/Plan Admission Diagonsis rlq abdominal pain appendicitis Admission Status: Other (Same Day Surgery) Assessment/Plan rlq abdominal pain appendicitis discussed risks and benefits of laparoscopic appendectomy all other indicated procedures and he wishes to proceed to or. LAKEISHA ALCANTARA DO Nov 10, 2018 14:49
[2018-11-10] MEDS ORDERED: fentaNYL INJECTION 100 MCG/2 ML AMP IV ONE (14:56)
[2018-11-10] MEDS ORDERED: LACTATED RINGERS 1,000 ML IV PRN (14:56)
[2018-11-10] MEDS: fentaNYL INJECTION 100 MCG/2 ML AMP IV PRN ×2 (15:12→15:20)
[2018-11-10] MEDS ORDERED: fentaNYL INJECTION 100 MCG/2 ML AMP ONE (15:30)
[2018-11-10] MEDS ORDERED: proPOfol 200 MG/20 ML (DIPRIVAN) VIAL IV ONE (15:30)
[2018-11-10] MEDS ORDERED: ROCURONIUM 10 MG/ML 5 ML SYRINGE IV ONE (15:30)
[2018-11-10] MEDS ORDERED: MIDAZOLAM 2 MG/2 ML (VERSED) VIAL ONE (15:30)
[2018-11-10] MEDS ORDERED: LIDOCAINE PF 2% 5 ML (XYLOCAINE) VIAL ONE (15:30)
[2018-11-10] MEDS ORDERED: ONDANSETRON 4 MG/2 ML (SDV) Z0FRAN ONE ×2 (15:30→17:12)
[2018-11-10] MEDS ORDERED: LACTATED RINGERS 0 ML IV ONE (15:30)
[2018-11-10] MEDS ORDERED: NEOSTIGMINE 1 MG/ML 5 ML SYRINGE ONE (16:58)
[2018-11-10] MEDS ORDERED: GLYCOPYRROLATE 0.2 MG/ML (ROBINUL) 2 ML VIAL ONE (16:58)
[2018-11-10] MEDS ORDERED: SEVOFLURANE (ULTANE) 15 ML INHAL SOLN ONE (16:59)
--- NOTE | 2018-11-10 17:03 | Progress Note-Post Operative ---
Post-Operative Progess Note Surgeon (s)/Internet Assessor (s) Surgeon LAKEISHA MADRID DO Internet Assessor: na Pre-Operative Diagnosis appendicitis Post-Operative Diagnosis same Procedure & Operative Findings Date of Procedure 11/10/18 Procedure Performed/Findings lap appy Anesthesia Type gen Estimated Blood Loss Estimated blood loss (mL): min Specimens/Packing Specimens Removed appendix LAKEISHA MADRID DO Nov 10, 2018 17:03
[2018-11-10] MEDS ORDERED: ACHD5005 PO (17:04)
[2018-11-10] MEDS ORDERED: DOCU-143 PO (17:04)
--- NOTE | 2018-11-10 17:06 | Discharge Inst-Simple/Standard ---
Discharge Inst-Standard Discharge Medications New, Converted or Re-Newed RX: RX on Chart Patient Instructions/Follow Up Plan of Care/Instructions/FU: 2 weeks Alcantara Activity as Tolerated: No Discharge Diet: Regular Diet Other Inst to Patient Follow up Appt: Make appointment for 2 week. Instructions: No lifting greater than 10 pounds. No strenuous activity. May shower in 24 hours, no tub bath or soaking. Use incentive spirometer at home as directed. No Smoking Skin/Wound Care: You have special glue over incisions it will fall off on its own. Symptoms to Report: Appetite Changes, Extremity Discoloration, Numbness/Tingling, Swelling Increased , Bleeding Excessive, Eyesight Changes, Pain Increased, Urine Color Change, Constipation(Persistent), Fever over 101 degree F, Pain/Pressure in chest, Urinating Difficulty, Cough Up/Vomit Blood, Heart Beat Irreg/Pounding, Pain/ Pressure in jaw, Vaginal Bleeding Increase, Cramps in feet or legs, Lightheadedness, Pain/Pressure in shoulder, Diarrhea(Persistent), Memory Changes Suddenly, Questions/Concerns, Weight gain consecutive days, Dizziness/ Fainting, Nausea/Vomiting, Shortness of Breath, Weight gain over 2 pounds If questions or concerns contact your physician Or seek help at emergency department. LAKEISHA ALCANTARA DO Nov 10, 2018 17:06
[2018-11-10] MEDS ORDERED: PROMETHAZINE INJ 25 MG/ML (PHENERGAN) AMP IVP ONE (17:30)
[2018-11-10] MEDS ORDERED: MEPERIDINE (DEMEROL) INJ 50 MG/ML IVP ONE (17:30)
[2018-11-10] MEDS ORDERED: ONDANSETRON 4 MG/2 ML (SDV) Z0FRAN IVP PRN (17:30)
[2018-11-10 18:05] VITALS: BP 130/80
--- NOTE | 2018-11-10 18:10 | Anesthesia-General Post-Op ---
General Patient Condition Mental Status/LOC: Same as Preop Cardiovascular: Satisfactory Nausea/Vomiting: Absent Respiratory: Satisfactory Pain: Controlled Complications: Absent Post Op Complications Complications None Follow Up Care/Instructions Patient Instructions None needed. Anesthesia/Patient Condition Patient Condition Patient is doing well, no complaints, stable vital signs, no apparent adverse anesthesia problems. No complications reported per nursing. TIMBO BRUNNER CRNA Nov 10, 2018 18:10
[2018-11-10] MEDS ORDERED: HYDROcodone/APAP 5 MG/325 MG (LORTAB) TAB PO ONE (18:30)
[2018-11-10 18:35] VITALS: BP 134/83
[2018-11-10 19:00] VITALS: BP 149/80
--- NOTE | 2018-11-11 05:05 | OPERATIVE REPORT ---
DATE OF SERVICE: 11/10/2018 PREOPERATIVE DIAGNOSIS: Right lower quadrant abdominal pain, appendicitis. POSTOPERATIVE DIAGNOSIS: Right lower quadrant abdominal pain, appendicitis. PROCEDURE: Laparoscopic appendectomy. SURGEON: Lakeisha Alcantara DO ANESTHESIA: General. ESTIMATED BLOOD LOSS: Minimal. COMPLICATIONS: None. INDICATIONS: The patient is a 33-year-old male who presented with periumbilical abdominal pain that then migrated to the right lower quadrant. Physical exam and CT scan findings suggestive of acute appendicitis. He understands risks and benefits of procedure and wished to proceed with procedure. Consent was signed in the chart. PROCEDURE: The patient was taken to the operating suite, was prepped and draped in sterile fashion. Surgical pause was performed. A 5 mm incision made at the umbilicus. Toño was used to dissect down to the fascia, grasped and elevated. A Veress needle inserted and pneumoperitoneum was achieved. Under direct visualization of the laparoscope, a 5 mm trocar was then placed in the suprapubic region and a 12 mm trocar was placed in left lower quadrant. The appendix located, dilated and inflamed. It was grasped, elevated. A LigaSure then was used to go across the mesoappendix until was reached at the base. An Endo-MAMIE 2.5 stapler was then fired across the base of the appendix removing it. This was placed in an Endobag and removed through the 12 mm trocar site. The abdomen was then irrigated and suctioned. Staple line was intact. Hemostasis had been achieved. A 0 Vicryl was used with an Endoclose to close the 12 mm fascial defect. The abdomen was then desufflated, the trocars were removed. The skin was then closed using 4-0 Monocryl in subcuticular fashion. A local anesthetic was infiltrated prior to incisions at the end of the case. The abdomen was then washed and dried and Skin Affix was placed in the incisions. The patient tolerated procedure well without any complications, taken to recovery room in stable condition. Job ID: [id number] DocumentID: [id number] Dictated Date: 11/10/2018 17:20:55 Dude Wrangler Date: 11/11/2018 05:05:09 Dictated By: LAKEISHA ALCANTARA DO
== END 2018-11-10 19:00 | disposition home or self-care (01) ==
LOC: EDUNIT# 09:58 → ER 09:59 → SDC 13:24
PROVIDERS: ATTEND Surgery
DX: K35.80 Unspecified acute appendicitis (principal); F17.210 Nicotine dependence, cigarettes, uncomplicated
CPT/HCPCS: 36415; 74177; 80053; 81000; 82550; 83690; 83874; 85007; 85027; 87081; 96361; 96374; 96375

== ENCOUNTER 2023-01-25 09:15 | Emergency (ER) | payer BC ==
[~2023-01-25] VITALS: Ht 187 cm; Wt 106.5 kg
[~2023-01-25 09:15] MED LIST changes: +ACHD5005 PO; +DOCU-143 PO
[2023-01-25] MEDS ORDERED: KETOROLAC 15 MG/ML VIAL IM ONE (09:30)
[2023-01-25] MEDS ORDERED: KETO10TA PO (09:34)
[2023-01-25] MEDS ORDERED: CYCL10TA25 PO (09:34)
--- NOTE | 2023-01-25 09:38 | ED Back Pain ---
General Chief Complaint: Back Problems Stated Complaint: LOW BACK PAIN Source of Information: Patient Exam Limitations: No Limitations History of Present Illness Date Seen by Provider: Jan 25, 2023 Time Seen by Provider: 09:19 Initial Comments 37-year-old male presents emergency department today for 2 to 3 days of low back pain. He was sitting in a chair and twisted and had sudden onset of mid low back pain radiating bilaterally with occasional sharp shooting pains down his right leg. He has had chronic history of same pains and has been actually told based on CT findings that he needed a disc surgery in the past. This was when he was 24 years old but he did not have insurance at that time. He had not had issues with his low back for the last year but states his current symptoms are exactly the same as previous episodes of low back pain including right-sided radicular symptoms. He denies any loss of bowel or bladder control or saddle anesthesia. He has some tramadol at home without much relief. All other systems reviewed and negative except documented per HPI. Voice recognition software was used to help create this chart Allergies and Home Medications Allergies Coded Allergies: morphine (Unverified Allergy, Unknown, 11/10/18) nausea Patient Home Medication List Home Medication List Reviewed: Yes Docusate Sodium (Colace) 100 Mg Capsule, 100 MG PO DAILY Prescribed by: LAKEISHA MADRID on 11/10/18 170 Hydrocodone Bit/Acetaminophen (Lortab 5 Mg Tablet) 1 Tab Tab, 1-2 TAB PO Q6H PRN for PAIN-MODERATE Prescribed by: LAKEISHA MADRID on 11/10/18 170 Review of Systems Constitutional: no symptoms reported Past Crmokbe-Xpiqik-Qeisfs Hx Patient Social History Tobacco Use?: No Smoking Status: Former Smoker Substance use?: Yes Substance type: Marijuana Substance frequency: Once in a while Alcohol Use?: No Pt feels they are or have been: No Immunizations Up To Date Tetanus Booster (TDap): More than 5yrs PED Vaccines UTD: Yes Seasonal Allergies Seasonal Allergies: Yes Past Medical History Surgery/Hospitalization HX: appy, ankle sx, pmh spinal stenosis Surgeries: Yes Orthopedic Respiratory: No Cardiac: Yes (BORDERLINE) High Cholesterol, Hypertension Neurological: No Reproductive Disorders: No Gastrointestinal: No Musculoskeletal: Yes (SPINAL STENOSIS) Degenerate Disk Disease, Chronic Back Pain Endocrine: No Cancer: No Psychosocial: No Integumentary: No Blood Disorders: No Adverse Reaction/Blood Tranf: No Family Medical History Reviewed Nursing Family Hx No Pertinent Family Hx, Diabetes Physical Exam Vital Signs Capillary Refill : Height, Weight, BMI Height: 6'3.00" Weight: 250lbs. 0.0oz. [id number]; 31.3 BMI Method:Stated General Appearance: No Apparent Distress, Other (Antalgic gait) HEENT: Normal ENT Inspection, Pharynx Normal Neck: Normal Inspection, Non Tender, Supple Cardiovascular: Regular Rate, Rhythm, No Murmur Respiratory: Chest Non Tender, Lungs Clear, Normal Breath Sounds, No Accessory Muscle Use Back: Normal Inspection, No CVA Tenderness, Vertebral Tenderness (Tenderness palpation midline low lumbar region, near L4-5. No step-offs or deformity. No skin changes. He has bilateral paraspinal tenderness in this area as well.) Extremity: Normal Capillary Refill, Normal Inspection, Normal Range of Motion, Non Tender, No Calf Tenderness, Other (Normal strength bilateral lower extremities. Normal sensation and reflexes bilateral lower extremities.) Neurologic/Psychiatric: Alert, Oriented x3 Procedures/Interventions Suture Size: 2-0 Progress/Results/Core Measures Results/Orders My Orders Orders - COURTNEYLEEANNE DO Ketorolac Injection (Toradol Injection) (01/25/23 09:30) Departure Communication (Admissions) Patient is hemodynamically stable. He has no red flag symptoms. He states this is exactly the same as previous episodes of back pain. He has had a CT scan in the past and told that he would likely need a disc surgery but he did not have insurance at the time. It has been a year since he had a flare of his back pain. He does have some radicular symptoms down his right leg which are common for him as he states his sciatic nerve is frequently involved. He has no loss of bowel or bladder control, no lower extremity weakness. We will focus on pain control at this time. I do not think there is any indication for acute imaging as he has already been told he had a disc issue and there are no new symptoms related to this. I have given him IM Toradol we will discharge him with Toradol, Flexeril and close primary care follow-up. He states understanding. Impression Primary Impression: Chronic back pain Qualified Codes: M54.41 - Lumbago with sciatica, right side; G89.29 - Other chronic pain Disposition: 01 HOME, SELF-CARE Condition: Stable Departure-Patient Inst. Referrals: [facility] (PCP/Family) Primary Care Physician Patient Instructions: Low Back Pain (DC) Add. Discharge Instructions: Take medications as prescribed. Perform stretching exercises as discussed. Flexeril may make you drowsy so do not drive or make important decisions while taking it. Follow-up with your primary doctor should your symptoms persist. Return to the emergency department if you lose control of your bowel or bladder or weakness in your legs. All discharge instructions reviewed with patient and/or family. Voiced understanding. Scripts Ketorolac Tromethamine (Ketorolac Tromethamine) 10 Mg Tablet 10 MG PO TID for Pain for 3 Days, #9 TAB Prov: LEEANNE VALDEZ DO 01/25/23 Cyclobenzaprine HCl (Cyclobenzaprine HCl) 10 Mg Tablet 10 MG PO TID for Muscle Spasms for 3 Days, #9 TAB Prov: LEEANNE VALDEZ DO 01/25/23 LEEANNE VALDEZ DO Jan 25, 2023 09:38
[2023-01-25 10:15] VITALS: BP 146/90
== END 2023-01-25 10:14 | disposition home or self-care (01) ==
LOC: EDUNIT# 09:15 → ER 09:17
DX: M54.42 Lumbago with sciatica, left side (principal); M54.41 Lumbago with sciatica, right side; G89.29 Other chronic pain; Z87.891 Personal history of nicotine dependence; Z28.310 Unvaccinated for COVID-19; X50.1XXA Overexertion from prolonged static or awkward postures, initial encounter
CPT/HCPCS: 99284